=== PATIENT | female | born 1980 | race American Indian/Alaskan Native ===

== ENCOUNTER 2022-08-03 11:48 | Emergency (ER) | payer MEDICAID, OTHER ==
[2022-08-03] MEDS ORDERED: LORazepam 2 MG/ML SDV IVPUSH ONE ×2 (12:01→12:48)
[2022-08-03 12:28] LABS: ESTIMATED GFR 94 mL/min (>60)
[2022-08-03] MEDS ORDERED: cloNIDine 0.1 MG Tab PO ONE (12:48)
== END 2022-08-03 14:15 ==
LOC: JP.ED 11:48
DX: F11.23 Opioid dependence with withdrawal (principal); F17.200 Nicotine dependence, unspecified, uncomplicated
CPT/HCPCS: 36415; 80053; 80305; 81001; 83605; 85025; 96374; 96376; 99285; A9270; J2060

== ENCOUNTER 2022-08-03 14:46 | Emergency (ER) | payer OTHER | END 2022-08-03 15:00 | disposition left against medical advice (07) | LOC: JP.ED 14:46 | DX: Z53.21 Procedure and treatment not carried out due to patient leaving prior to being seen by health care provider (principal) ==

== ENCOUNTER 2022-11-29 02:44 | Emergency (ER) | payer MEDICAID, OTHER ==
[2022-11-29] MEDS ORDERED: levETIRAcetam 250 MG Tab PO STA (02:57)
[2022-11-29] MEDS ORDERED: LORazepam 2 MG/ML SDV IM ONE (03:17)
[2022-11-29 03:25] LABS: ESTIMATED GFR 111 mL/min (>60)
[2022-11-29] MEDS ORDERED: levETIRAcetam in NaCl (iso-os) 1,500 MG in Premix Bag 100 BAG IV ONE ×2 (03:30)
[2022-11-29] MEDS ORDERED: Sodium Chloride 0.9% 10 ML Syringe FLUSH PRN (03:30)
[2022-11-29] MEDS ORDERED: Fosphenytoin 1,250 MG.PE in Sodium Chloride 0.9% 50 ML IV ONE (04:25)
== END 2022-11-29 06:41 ==
LOC: JP.ED 02:44
DX: G40.901 Epilepsy, unspecified, not intractable, with status epilepticus (principal); F15.10 Other stimulant abuse, uncomplicated; F12.90 Cannabis use, unspecified, uncomplicated
CPT/HCPCS: 36415; 80053; 80305-QW; 81001; 83605; 83735; 85025; 96365; 96372; 96375; 99284; 99284-25; A9270-GY; J1953; J2060; J3490; Q2009

== ENCOUNTER 2022-11-29 09:22 | Emergency (ER) | payer MEDICAID | END 2022-11-29 11:45 | LOC: JP.ED 09:22 | DX: G40.909 Epilepsy, unspecified, not intractable, without status epilepticus (principal); Z72.0 Tobacco use | CPT/HCPCS: 99283; 99284 ==

== ENCOUNTER 2022-11-29 15:25 | Emergency (ER) | payer MEDICAID ==
[2022-11-29 17:33] LABS: ESTIMATED GFR 111 mL/min (>60)
[2022-11-29] MEDS ORDERED: Ketamine 500 MG/5 ML MDV ONE (18:32)
[2022-11-29] MEDS ORDERED: Ketamine 500 MG/5 ML MDV IM ONE ×2 (18:33→23:26)
[2022-11-29] MEDS: levETIRAcetam 250 MG Tab PO SCH (20:59)
[2022-11-30] MEDS ORDERED: OLANZapine 5 MG Tab PO ONE (03:11)
[2022-11-30] MEDS ORDERED: diphenhydrAMINE 50 MG/ML SDV IM ONE (06:33)
[2022-11-30] MEDS ORDERED: LORazepam 2 MG/ML SDV IM ONE (06:34)
[2022-11-30] MEDS ORDERED: Haloperidol Lactate 5 MG/ML SDV IM ONE (06:35)
[2022-11-30] MEDS: levETIRAcetam 250 MG Tab PO SCH (10:11)
== END 2022-11-30 11:00 ==
LOC: JP.ED 15:25
DX: F44.5 Conversion disorder with seizures or convulsions (principal); F91.9 Conduct disorder, unspecified; F17.210 Nicotine dependence, cigarettes, uncomplicated; Z98.890 Other specified postprocedural states; Z79.899 Other long term (current) drug therapy
CPT/HCPCS: 36415; 70450; 80053; 83605; 85025; 96372; 99283; 99285; A9270-GY; J1200; J1630; J2060

== ENCOUNTER 2022-12-01 14:06 | Emergency (ER) | payer MEDICAID ==
[2022-12-01] MEDS ORDERED: Gabapentin 300 MG Cap PO ONE (16:25)
[2022-12-01] MEDS ORDERED: Gabapentin 400 MG Cap PO ONE (16:29)
== END 2022-12-01 16:40 ==
LOC: JP.ED 14:06
DX: R56.9 Unspecified convulsions (principal); Z72.0 Tobacco use
CPT/HCPCS: 99285; A9270